=== PATIENT | male | born 1940 | race Caucasian/White ===

== ENCOUNTER 2020-11-24 10:36 | Day surgery (SDC) | payer MEDICARE, BC ==
[~2020-11-24] VITALS: Ht 185.4 cm; Wt 70.4 kg
[2020-11-24] VITALS (9 sets, daily range): BP systolic 121–164; BP diastolic 69–95
[2020-11-24] MEDS ORDERED: diphenhydrAMINE 25mg capsule PO PRN (11:15)
[2020-11-24] MEDS ORDERED: normal saline 1,000 ML IV SCH (11:15)
[2020-11-24] MEDS ORDERED: CARV-49 PO (11:26)
[2020-11-24] MEDS ORDERED: APIX5TAB3 PO (11:26)
[2020-11-24 11:48] LABS: EOSINOPHILS # (AUTO) 0.1 X10'3 (0-0.9); MONOCYTES # (AUTO) 0.6 X10'3 (0-0.9)
[2020-11-24 11:50] LABS: BASOPHILS % (AUTO) 0.8 % (0-1); EOSINOPHILS % (AUTO) 1.6 % (0-6); HEMATOCRIT 44.3 % (42.0-52.0); HEMOGLOBIN 14.9 g/dl (14.0-17.9); LYMPHOCYTES # (AUTO) 2.2 X10'3 (1.1-4.8); LYMPHOCYTES % (AUTO) 35.5 % (21-51); MEAN CORPUSCULAR HEMOGLOBIN 32.1 PG (27.0-31.0); MEAN CORPUSCULAR HGB CONC 33.7 g/dL (33.0-36.5); MEAN CORPUSCULAR VOLUME 95.2 FL (78-98); MONOCYTES % (AUTO) 10.1 % (2-12); NEUTROPHILS # (AUTO) 3.2 X10'3 (1.8-7.7); PLATELET COUNT 182 X10'3 (140-440); RED BLOOD COUNT 4.66 X10'6 (4.70-6.10); RED CELL DISTRIBUTION WIDTH 12.8 % (11.5-14.5); WHITE BLOOD COUNT 6.1 X10'3 (4.5-11.0)
[2020-11-24 12:13] LABS: PARTIAL THROMBOPLASTIN TIME 28 SECONDS (22-32)
[2020-11-24 12:23] LABS: ALBUMIN 4.2 G/DL (3.4-5.0); ANION GAP 7 (8-16); BLOOD UREA NITROGEN 13 MG/DL (7-18); CALCIUM 8.9 MG/DL (8.5-10.1); CHLORIDE 105 MMOL/L (99-107); GLUCOSE 97 MG/DL (70-104); POTASSIUM 4.5 MMOL/L (3.5-5.1); SODIUM 141 MMOL/L (135-145); TOTAL CARBON DIOXIDE 29.1 MMOL/L (24-32); eGFR 72 ML/MIN
[2020-11-24] MEDS ORDERED: iohexol 350 MG/ML 50ML vial IV ONE (12:30)
[2020-11-24] MEDS ORDERED: iohexol 350MG/ML 100ml bottle IV ONE (12:30)
[2020-11-24] MEDS ORDERED: fentaNYL/PF 50MCG/1 ML 2ML syringe ONE (12:30)
[2020-11-24] MEDS ORDERED: midazolam 1 mg/ML 2ml injection ONE (12:30)
[2020-11-24] MEDS ORDERED: heparin 1,000unit/ml 10ml vial 10 ML ONE (12:30)
[2020-11-24] MEDS ORDERED: LIDOcaine 1% (10mg/ml)w/preservative injection 20ml MDV ONE (12:30)
[2020-11-24] MEDS ORDERED: proCHLORperazine 10 MG/2 ml inj IV PRN (13:45)
[2020-11-24] MEDS ORDERED: ondansetron/PF 4mg/2ml inj IV PRN (13:45)
== END 2020-11-24 16:45 | disposition home or self-care (01) ==
LOC: SSTAY O 10:36
PROVIDERS: ATTEND Internal Medicine Cardiovascular Disease
DX: R94.39 Abnormal result of other cardiovascular function study (principal); I48.20 Chronic atrial fibrillation, unspecified; I43 Cardiomyopathy in diseases classified elsewhere; Z98.890 Other specified postprocedural states; Z98.49 Cataract extraction status, unspecified eye; Z72.89 Other problems related to lifestyle; Z85.118 Personal history of other malignant neoplasm of bronchus and lung; Z88.5 Allergy status to narcotic agent; Z88.8 Allergy status to other drugs, medicaments and biological substances; Z79.899 Other long term (current) drug therapy
CPT/HCPCS: 36415; 80048; 83735; 85025; 85730; 93005; 93458; 99152; C1760; C1769; C1894; J1644; J2001; J2250; J3010; J7030; Q0163; Q9967; A4620; A6258

== ENCOUNTER 2021-09-19 05:18 | Day surgery (SDC) | payer MEDICARE, BC ==
[2021-09-13 15:30] LABS: BASOPHILS % (AUTO) 0.7 % (0-1); EOSINOPHILS # (AUTO) 0.1 X10'3 (0-0.9); LYMPHOCYTES # (AUTO) 2.3 X10'3 (1.1-4.8); MEAN CORPUSCULAR HGB CONC 34.3 g/dL (33.0-36.5); MEAN CORPUSCULAR VOLUME 93.3 FL (78-98); MEAN PLATELET VOLUME 7.7 FL (7.4-10.4); MONOCYTES # (AUTO) 0.6 X10'3 (0-0.9); MONOCYTES % (AUTO) 10.6 % (2-12); NEUTROPHILS # (AUTO) 2.6 X10'3 (1.8-7.7); NEUTROPHILS % (AUTO) 45.7 % (42-75); PRE OP HEMATOCRIT 40.4 % (42.0-52.0); PRE OP HEMOGLOBIN 13.8 g/dL (14.0-17.9); PRE OP PLATELET COUNT 169 X10'3 (140-440); RED BLOOD COUNT 4.33 X10'6 (4.70-6.10)
[2021-09-13 15:43] LABS: ALBUMIN/GLOBULIN RATIO 1.1 (1.1-1.5); ALKALINE PHOSPHATASE 51 IU/L (46-116); BLOOD UREA NITROGEN 15 MG/DL (7-18); CALCIUM 8.9 MG/DL (8.5-10.1); CHLORIDE 102 MMOL/L (99-107); PRE OP ALT 17 U/L (30-65); PRE OP ANION GAP 4 (8-16); PRE OP AST 22 U/L (10-37); PRE OP BILIRUB, TOTAL 0.6 MG/DL (0.0-1.0); PRE OP GLUCOSE 99 MG/DL (70-104); PRE OP SODIUM 136 MMOL/L (135-145); TOTAL CARBON DIOXIDE 30.4 MMOL/L (24-32); TOTAL PROTEIN 7.5 G/DL (6.4-8.2); eGFR 72 ML/MIN
[2021-09-13 15:51] LABS: CLARITY,URINE CLEAR (Clear); COLOR,URINE YELLOW (Yellow); GLUCOSE, URINE NEGATIVE (Neg); KETONES,URINE NEGATIVE (Neg); LEUKOCYTE ESTERASE ,URINE NEGATIVE (Neg); NITRITES, URINE NEGATIVE (Neg); OCCULT BLOOD,URINE NEGATIVE (Neg); PH,URINE 6.5 (4.8-8.0); PROTEIN,URINE NEGATIVE (Neg); UROBILINOGEN,URINE 0.2 E.U/dL (0.2-1.0)
[2021-09-13 15:56] LABS: UA COLLECTION TYPE VOIDED
[2021-09-19] VITALS (22 sets, daily range): BP systolic 111–152; BP diastolic 62–96
[~2021-09-19] VITALS: Ht 188 cm; Wt 71.6 kg
[~2021-09-19 05:18] MED LIST: APIX5TAB3 PO; CARV-49 PO; SACU1TAB PO; ringers solution, lacted 1,000 ML IV SCH
[2021-09-19] MEDS ORDERED: famotidine 20mg tablet PO ONE (05:30)
[2021-09-19] MEDS ORDERED: ceFAZolin inj. 2,000 MG in dextrose 5%-water 100 ML IV ONE (05:30)
[2021-09-19] MEDS ORDERED: BUPIVAcaine/PF 2.5mg/ml (0.25%) 10ml vial ONE (06:47)
[2021-09-19] MEDS ORDERED: sevoflurane 250ml liquid IH ONE (07:55)
[2021-09-19] MEDS ORDERED: fentaNYL/PF 50MCG/1 ML 2ML syringe ONE ×2 (07:59→08:52)
[2021-09-19] MEDS ORDERED: propofol inj 20 ML IV ONE (08:08)
[2021-09-19] MEDS ORDERED: dexamethasone sod phosphate 4mg/ml inj. ONE (08:08)
[2021-09-19] MEDS ORDERED: rocuronium 10mg/ml inj IV ONE (08:08)
[2021-09-19] MEDS ORDERED: LIDOcaine 2% (20mg/ml) 5ml vial ONE (08:08)
[2021-09-19] MEDS ORDERED: phenylephrine 10mg/ml inj. ONE ×2 (08:42→09:18)
--- NOTE | 2021-09-19 09:03 | NUR ---
Received from OR via [facility] , accompanied by Anesthesiologist ARTURO and report given by Anesthesiolgist. PATIENT ROLLING AND SITTING UP AND MOANING UPON ARRIVAL. ANESTHESIA GAVE MEDS TO ASSIST IN PAIN UPON ARRIVAL. VSS. 20G PIV IN LEFT HAND RUNNING LR AT 100. 3 LAP SITES THAT ARE ALL CDI. Addendum: 09/19/21 at 0915 by Nick Flood RN, RN Amended: Links added.
[2021-09-19] MEDS ORDERED: morphine 2 MG/ML inj. syringe IV PRN (09:10)
[2021-09-19] MEDS ORDERED: ondansetron/PF 4mg/2ml inj IV PRN (09:10)
[2021-09-19] MEDS ORDERED: ringers solution, lacted 1,000 ML IV SCH (09:10)
[2021-09-19] MEDS ORDERED: glycopyrrolate 0.2mg/ml inj ONE (09:18)
[2021-09-19] MEDS ORDERED: ondansetron/PF 4mg/2ml inj ONE (09:18)
[2021-09-19] MEDS ORDERED: neostigmine methylsulfate 1 MG/ML 10ml vial ONE (09:18)
[2021-09-19] MEDS: HYDROmorphone/PF 0.2 MG/ML SYRINGE IV PRN ×2 (09:23→09:55)
[2021-09-19] MEDS ORDERED: LIDOcaine 2% 10ml TOPICAL JELLY (Urojet) MM ONE (11:45)
--- NOTE | 2021-09-19 13:10 | NUR ---
CARE TURNED OVER TO PAULINE LUONG. VSS. FREITAS CATHETER NOW IN PLACE WITH CLEAR YELLOW URINE PRESENT. PATIENT WAS UNABLE TO VOID 3 HOURS FOLLOWING SURGERY AND A CATHETER WAS PLACED PER MD DOBBINS' STANDING ORDERS. PATIENT STATES HE FEELS UNSTEADY ON HIS FEET DESPITE VSS. OPTED TO TRANSFER TO [facility] UNTIL PATIENT MEETS ALL DC CRITERIA. Addendum: 09/19/21 at 1315 by Nick Flood RN RN Amended: Links added.
--- NOTE | 2021-09-19 14:20 | NUR ---
PT DOING WELL, ABLE TO AMBULATE WITH STANDBY ASSIST, DISCUSSED CARE OF F/C FURTHER WITH PT-PT SEEMED MORE AT EASE REGARDING HOME PLAN. PIV D/CD, VSS, PAIN MINIMAL, ALL D/C INSTRUCTIONS DISCUSSED AGAIN WITH PT AND NEIGHBOR/RIDE-ALL QUESTIONS ANSWERED, PT HAS NECESSARY CLEANING WIPES FOR F/C CARE, TAKEN WITH ALL BELONGINGS TO VEHICLE FOR TRANSPORT HOME.
== END 2021-09-19 14:23 | disposition home or self-care (01) ==
LOC: PAS 05:18
PROVIDERS: ATTEND Surgery
DX: K40.90 Unilateral inguinal hernia, without obstruction or gangrene, not specified as recurrent (principal); I48.20 Chronic atrial fibrillation, unspecified; I43 Cardiomyopathy in diseases classified elsewhere; I10 Essential (primary) hypertension; Z79.899 Other long term (current) drug therapy; Z88.5 Allergy status to narcotic agent; Z79.01 Long term (current) use of anticoagulants; Z98.890 Other specified postprocedural states; Z98.49 Cataract extraction status, unspecified eye; Z80.1 Family history of malignant neoplasm of trachea, bronchus and lung
CPT/HCPCS: 36415; 49650; 80053; 81003; 82948; 85025; 93005; C1758; C1781; J0690; J1100; J1170; J2370; J2405; J2704; J2710; J3010; J3490; J7030; J7060; J7120; Z7506; Z7508; Z7512; A4215; A4314; A4618